=== PATIENT | female | born 1985 | race Caucasian/White ===

== ENCOUNTER 2019-03-10 05:56 | Emergency (ER) | payer MEDICAID ==
[~2019-03-10] VITALS: Ht 157.5 cm; Wt 92.5 kg
[~2019-03-10 05:56] MED LIST: FERR325E14 PO; FOLI1TAB19 PO; FOLIC ACID; PREN-385 PO; [UNRECOGNIZED DRUG - REMARK]
[2019-03-10 06:00] VITALS: BP 125/76
--- NOTE | 2019-03-10 06:00 | NUR ---
TO BED # 12 AMBULATORY
--- NOTE | 2019-03-10 06:24 | NUR ---
33/F PT CC ABD PAIN AT 5AM. LOWER ABD PAIN 5/10. STATES IS 1 MONTH . NO BLEEDING OR SPOTTING NOTED. AOX4. CHINESE SPEAKING. ABLE TO VERBALIZE NEEDS. EVEN UNLABORED BREATHING. NO TENDERNESS NOTED. AFEBRILE. WILL CONTINUE TO MONITOR.
--- NOTE | 2019-03-10 06:36 | NUR ---
PT STATES 3 PARA 2
--- NOTE | 2019-03-10 06:55 | NUR ---
BLOOD DRAW PERFORMED
--- NOTE | 2019-03-10 07:15 | NUR ---
ENDORSED CARE TO INCOMING SHIFT FOR CONTINUITY OF CARE.
--- NOTE | 2019-03-10 07:17 | NUR ---
Report received from maru laureano
[2019-03-10 07:26] LABS: BASOPHILS % (AUTO) 0.3 % (0.0-2.0); EOSINOPHILS # (AUTO) 0.2 K/uL (0-0.4); HEMATOCRIT 35.3 % (36-48); HEMOGLOBIN 11.9 g/dL (12.0-16.0); MEAN CORPUSCULAR HEMOGLOBIN 27 pg (27-31); MEAN CORPUSCULAR HGB CONC 34 g/dL (33-37); MEAN CORPUSCULAR VOLUME 80.2 fL (80-94); MONOCYTES # (AUTO) 0.5 K/uL (0.8-1.0); MONOCYTES % (AUTO) 6.5 % (1.7-9.3); NEUTROPHILS % (AUTO) 65.2 % (42.2-75.2); PLATELET COUNT (AUTO) 251 K/uL (140-450); RED CELL DISTRIBUTION WIDTH 14.6 % (11.6-13.7); WHITE BLOOD COUNT (AUTO) 7.7 K/uL (4.8-10.8)
[2019-03-10 07:44] LABS: BILIRUBIN,URINE NEGATIVE (NEGATIVE); BLOOD, URINE NEGATIVE (NEGATIVE); COLOR,URINE YELLOW (YELLOW); LEUKOCYTE ESTERASE ,URINE NEGATIVE (NEGATIVE); NITRITE, URINE NEGATIVE (NEGATIVE); UGLUCOSE NEGATIVE (NEGATIVE)
[2019-03-10 07:45] LABS: APPEARANCE,URINE CLEAR (CLEAR)
--- NOTE | 2019-03-10 07:52 | NUR ---
dr brownlee at bedside
[2019-03-10 07:53] LABS: ANION GAP 12.1 (8-16); CARBON DIOXIDE 24.5 mmol/L (21-32); CREATININE 0.6 mg/dL (0.6-1.3); POTASSIUM 3.6 mmol/L (3.5-5.1)
--- NOTE | 2019-03-10 07:56 | NUR ---
vss at this time, pt is [id number], laying in bed
[2019-03-10 07:59] LABS: ALBUMIN 3.6 g/dL (3.4-5.0); TOTAL BILIRUBIN 0.3 mg/dL (0.0-1.0)
[2019-03-10 08:35] VITALS: BP 114/69
--- NOTE | 2019-03-10 08:35 | NUR ---
Patient discharged with v/s stable. Written and verbal after care instructions given and explained. Patient verbalized understanding. Ambulatory with steady gait. All questions addressed prior to discharge. Advised to follow up with PMD.
== END 2019-03-10 08:35 | disposition home or self-care (01) ==
LOC: MED 05:56
DX: O26.891 Other specified pregnancy related conditions, first trimester (principal); R10.30 Lower abdominal pain, unspecified; Z79.899 Other long term (current) drug therapy; Z3A.01 Less than 8 weeks gestation of pregnancy
CPT/HCPCS: 36415; 76801; 80053; 81003; 84702; 85025; 99284; Q0092; 81025

== ENCOUNTER 2019-04-02 21:43 | Emergency (ER) | payer MEDICAID ==
[~2019-04-02] VITALS: Ht 157.5 cm; Wt 91.6 kg
[2019-04-02 21:47] VITALS: BP 138/72
--- NOTE | 2019-04-02 21:47 | NUR ---
PT TAKEN TO BED 8
--- NOTE | 2019-04-02 22:03 | NUR ---
Dr. Mar evaluating patient at bedside.
--- NOTE | 2019-04-02 22:04 | NUR ---
PT BIB SELF TO THE ED WITH THE CHIEF C/O NON-RADIATING LEFT CHEST PAIN. PT WAS SEEN BY DOCTOR IN CLINIC ON SATURDAY FOR SORE THROAT. TAKING AZITHROMYCIN AND CLARITIN SINCE THEN. PT IS 7 WEEKS PER PT. LUNGS CLEAR. DENIES SOB OR DIFFICULTY BREATHING. ABDOMEN SOFT, ROUND AND NON-TENDER. ACTIVE BOWEL SOUND. DENIES ANY NAUSEA, VOMITING OR DIARRHEA. STATES PAIN OF 6/10 AT THIS TIME.
[2019-04-02] MEDS ORDERED: ALUMINUM HYD/MAG/SIMETHICONE 30 ML UDC PO ONE (22:15)
[2019-04-02 22:55] LABS: BASOPHILS % (AUTO) 0.3 % (0.0-2.0); EOSINOPHILS # (AUTO) 0.2 K/uL (0-0.4); EOSINOPHILS % (AUTO) 2.1 % (0.0-4.0); HEMATOCRIT 34.8 % (36-48); HEMOGLOBIN 11.6 g/dL (12.0-16.0); LYMPHOCYTES # (AUTO) 2.4 K/uL (2.5-16.5); LYMPHOCYTES % (AUTO) 31.5 % (20.5-51.1); MEAN CORPUSCULAR HEMOGLOBIN 27 pg (27-31); MEAN CORPUSCULAR HGB CONC 33 g/dL (33-37); MEAN CORPUSCULAR VOLUME 81.2 fL (80-94); MONOCYTES # (AUTO) 0.6 K/uL (0.8-1.0); MONOCYTES % (AUTO) 7.6 % (1.7-9.3); NEUTROPHILS # (AUTO) 4.4 K/uL (1.8-7.7); NEUTROPHILS % (AUTO) 58.5 % (42.2-75.2); PLATELET COUNT (AUTO) 245 K/uL (140-450); RED BLOOD CELL COUNT(AUTO) 4.29 MIL/uL (4.20-5.40); RED CELL DISTRIBUTION WIDTH 14.8 % (11.6-13.7); WHITE BLOOD COUNT (AUTO) 7.5 K/uL (4.8-10.8)
[2019-04-02 23:05] LABS: ANION GAP 10.8 (8-16); CARBON DIOXIDE 26.1 mmol/L (21-32); CREATININE 0.5 mg/dL (0.6-1.3); POTASSIUM 3.9 mmol/L (3.5-5.1)
[2019-04-02 23:11] LABS: ALBUMIN 3.4 g/dL (3.4-5.0); TOTAL BILIRUBIN 0.2 mg/dL (0.0-1.0)
--- NOTE | 2019-04-02 23:35 | NUR ---
NO SOB OR DIFFICULTY BREATHING NOTED. NO CHANGE IN LOC. VSS. NO C/O PAIN AT THIS TIME.
--- NOTE | 2019-04-02 23:41 | NUR ---
Patient discharged with v/s stable. Written and verbal after care instructions given and explained. Patient alert, oriented and verbalized understanding of instructions. Ambulatory with steady gait. All questions addressed prior to discharge. ID band removed. Patient advised to follow up with PMD. Rx of MAALOX given. Patient educated on indication of medication including possible reaction and side effects. Opportunity to ask questions provided and answered.
[2019-04-02 23:42] VITALS: BP 109/55
== END 2019-04-02 23:41 | disposition home or self-care (01) ==
LOC: MED 21:43
DX: K21.9 Gastro-esophageal reflux disease without esophagitis (principal); Z79.899 Other long term (current) drug therapy
CPT/HCPCS: 36415; 80053; 81002; 81025; 84484; 85025; 93005; 99283

== ENCOUNTER 2019-05-05 09:05 | Emergency (ER) | payer MEDICAID ==
[~2019-05-05] VITALS: Ht 157.5 cm; Wt 92.5 kg
[2019-05-05 09:12] VITALS: BP 114/64
--- NOTE | 2019-05-05 09:15 | NUR ---
PATIENT AMBULATED TO BED 7 AT THIS TIME.
--- NOTE | 2019-05-05 09:20 | NUR ---
PT IN RESTROOM AT THIS TIME PROVIDING URINE SAMPLE
--- NOTE | 2019-05-05 09:23 | NUR ---
PT BIB SELF C/O ANKLE PAIN X2 DAYS. PT DENIES TRAUMA OR INJURY. PT REPORTS SHARP 6/10 PAIN THAT RADIATES UP LATERAL ANKLE. NO SWELLING, REDNESS, BRUISING, OR DEFORMITY PRESENT. + CMS. VSS. PT 12 WEEKS , LMP 01/15/19, . ER MD TO SEE PT. MEDHX:DENIES RX:DENIES
[2019-05-05] MEDS ORDERED: ACETAMINOPHEN EXTRA STRENGTH 500 MG TAB PO ONE (09:55)
--- NOTE | 2019-05-05 10:00 | NUR ---
LUPE SALDIVAR APPLIED SPLINT TO PT RT FOOT, TOES DISTAL TO SPLINT + CMS.
--- NOTE | 2019-05-05 10:02 | NUR ---
po meds given-nadr at this time
[2019-05-05 10:21] VITALS: BP 118/69
--- NOTE | 2019-05-05 10:21 | NUR ---
DPatient discharged with v/s stable. Written and verbal after care instructions given and explained. Patient alert, oriented and verbalized understanding of instructions. Ambulatory with steady gait. All questions addressed prior to discharge. ID band removed. Patient advised to follow up with PMD. Rx of TYLENOL given. Patient educated on indication of medication including possible reaction and side effects. Opportunity to ask questions provided and answered.
== END 2019-05-05 10:21 | disposition home or self-care (01) ==
LOC: MED 09:05
DX: O9A.212 Injury, poisoning and certain other consequences of external causes complicating pregnancy, second trimester (principal); S93.601A Unspecified sprain of right foot, initial encounter; Z3A.14 14 weeks gestation of pregnancy; Z79.899 Other long term (current) drug therapy; X58.XXXA Exposure to other specified factors, initial encounter; Y93.89 Activity, other specified; Y92.89 Other specified places as the place of occurrence of the external cause; Y99.8 Other external cause status
CPT/HCPCS: 29515; 81002; 81025; 99283

== ENCOUNTER 2019-08-31 05:10 | Observation (INO) | payer MEDICAID ==
[~2019-08-31] VITALS: Ht 157.5 cm; Wt 92.5 kg
[2019-08-31 06:03] VITALS: BP 115/65
[2019-08-31 06:57] LABS: APPEARANCE,URINE CLEAR (CLEAR); BILIRUBIN,URINE NEGATIVE (NEGATIVE); BLOOD, URINE NEGATIVE (NEGATIVE); COLOR,URINE YELLOW (YELLOW); LEUKOCYTE ESTERASE ,URINE NEGATIVE (NEGATIVE); NITRITE, URINE NEGATIVE (NEGATIVE); UGLUCOSE NEGATIVE (NEGATIVE)
--- NOTE | 2019-08-31 13:17 | NUR ---
PATIENT HAS BEEN SCREENED AND CATEGORIZED LOW NUTRITION RISK. PATIENT WILL BE SEEN WITHIN 7 DAYS OF ADMISSION. 09/06/[address]
== END 2019-08-31 16:08 | disposition home or self-care (01) ==
LOC: MLD 05:10
PROVIDERS: ADMIT Obstetrics & Gynecology; ATTEND Obstetrics & Gynecology
DX: O60.03 Preterm labor without delivery, third trimester (principal); O26.893 Other specified pregnancy related conditions, third trimester; R10.9 Unspecified abdominal pain; Z3A.32 32 weeks gestation of pregnancy
CPT/HCPCS: 36415; 76817; 81003; 82731; G0378; Q0092

== ENCOUNTER 2019-09-10 09:50 | Observation (INO) | payer MEDICAID ==
[~2019-09-10] VITALS: Ht 157.5 cm; Wt 92.5 kg
[~2019-09-10 09:50] MED LIST changes: -FOLIC ACID
[2019-09-10 10:12] VITALS: BP 117/72
--- NOTE | 2019-09-10 11:08 | NUR ---
PATIENT HAS BEEN SCREENED AND CATEGORIZED LOW NUTRITION RISK. PATIENT WILL BE SEEN WITHIN 7 DAYS OF ADMISSION. 09/17/[address]
== END 2019-09-10 13:38 | disposition home or self-care (01) ==
LOC: MLD 09:50
PROVIDERS: ADMIT Obstetrics & Gynecology; ATTEND Obstetrics & Gynecology
DX: O60.03 Preterm labor without delivery, third trimester (principal); R10.9 Unspecified abdominal pain; Z3A.34 34 weeks gestation of pregnancy
CPT/HCPCS: 76819; G0378; Q0092; 81000

== ENCOUNTER 2019-10-03 21:13 | Emergency (ER) | payer MEDICAID ==
[~2019-10-03] VITALS: Ht 157.5 cm; Wt 99.3 kg
[2019-10-03 21:17] VITALS: BP 151/92
--- NOTE | 2019-10-03 21:23 | NUR ---
PT AMBULATED TO BED #3
--- NOTE | 2019-10-03 21:41 | NUR ---
PATIENT PRESENTS TO ED WITH CHEST PAIN X2 HOURS. PRESSURE LIKE PAIN THAT RADIATES TO HER BACK. 35 WEEKS , LMP 01/15/19. DENIES ABD PAIN AND CRAMPING. PT DENIES PHM NKA. PT DID NOT TAKE ASPRIN OR NITRO. PT TAKES VITAMIN, FOLIC ACID AND PEPCID. DENIES N/V/D; SKIN IS PINK/WARM/DRY; AAOX4 WITH EVEN AND STEADY GAIT; LUNGS CLEAR BL; HR EVEN AND REGULAR; PT DENIES ANY FEVER, SOB, OR COUGH AT THIS TIME; PATIENT STATES PAIN OF 3/10 AT THIS TIME; VSS; PATIENT POSITIONED FOR COMFORT; HOB ELEVATED; BEDRAILS UP X2; BED DOWN. ER MD MADE AWARE OF PT STATUS.
--- NOTE | 2019-10-03 21:44 | NUR ---
EKG PERFORMED AT BEDSIDE
[2019-10-03] MEDS ORDERED: ACETAMINOPHEN EXTRA STRENGTH 500 MG TAB PO ONE (21:55)
[2019-10-03 22:32] VITALS: BP 137/88
== END 2019-10-03 22:32 | disposition home or self-care (01) ==
LOC: MED 21:13
DX: O26.893 Other specified pregnancy related conditions, third trimester (principal); R07.89 Other chest pain; R05 Cough; Z79.899 Other long term (current) drug therapy
CPT/HCPCS: 81002; 81025; 93005; 99283

== ENCOUNTER 2019-10-12 08:20 | Inpatient (IN) | payer MEDICAID ==
[~2019-10-12] VITALS: Ht 157.5 cm; Wt 92.5 kg
[2019-10-12 10:17] LABS: BASOPHILS % (AUTO) 0.2 % (0.0-2.0); EOSINOPHILS # (AUTO) 0.1 K/uL (0-0.4); EOSINOPHILS % (AUTO) 0.8 % (0.0-4.0); HEMATOCRIT 35.8 % (36-48); LYMPHOCYTES # (AUTO) 1.7 K/uL (2.5-16.5); LYMPHOCYTES % (AUTO) 23.4 % (20.5-51.1); MEAN CORPUSCULAR HEMOGLOBIN 29 pg (27-31); MEAN CORPUSCULAR HGB CONC 34 g/dL (33-37); MEAN CORPUSCULAR VOLUME 87.4 fL (80-94); MONOCYTES # (AUTO) 0.5 K/uL (0.8-1.0); MONOCYTES % (AUTO) 6.7 % (1.7-9.3); NEUTROPHILS % (AUTO) 68.9 % (42.2-75.2); PLATELET COUNT (AUTO) 228 K/uL (140-450); RED BLOOD CELL COUNT(AUTO) 4.09 MIL/uL (4.20-5.40); RED CELL DISTRIBUTION WIDTH 14.1 % (11.6-13.7); WHITE BLOOD COUNT (AUTO) 7.3 K/uL (4.8-10.8)
[2019-10-12] MEDS ORDERED: LACTATED RINGERS 1,000 ML IV SCH (10:50)
[2019-10-12] MEDS ORDERED: INFLUENZA VACCINE QUAD 0.5 ML SYR IMVAC PRN (11:35)
[2019-10-12 11:47] LABS: APPEARANCE,URINE HAZY (CLEAR); BILIRUBIN,URINE NEGATIVE (NEGATIVE); BLOOD, URINE 3+ (NEGATIVE); COLOR,URINE YELLOW (YELLOW); LEUKOCYTE ESTERASE ,URINE TRACE (NEGATIVE); NITRITE, URINE NEGATIVE (NEGATIVE); UGLUCOSE NEGATIVE (NEGATIVE)
[2019-10-12] MEDS ORDERED: PROMETHAZINE 25 MG/ML VIAL IVP PRN (11:55)
[2019-10-12] MEDS ORDERED: CARBOPROST 250 MCG/ML AMP IM PRN (11:55)
[2019-10-12] MEDS ORDERED: METHYLERGONOVINE 0.2 MG/ML AMP IM PRN ×2 (11:55→22:10)
[2019-10-12] MEDS ORDERED: MISOPROSTOL 25 MCG TAB VG SCH (12:00)
[2019-10-12 12:38] LABS: RBC,URINE 80-100 /HPF (0-5)
[2019-10-12 12:41] LABS: WBC,URINE 0-5 /HPF (0-5)
[2019-10-12] MEDS ORDERED: MISOPROSTOL 25 MCG TAB ONE (13:03)
[2019-10-12 13:07] VITALS: BP 157/87
[2019-10-12 13:29] LABS: ALBUMIN 2.6 g/dL (3.4-5.0); ANION GAP 15.2 (8-16); CREATININE 0.6 mg/dL (0.6-1.3); POTASSIUM 4.2 mmol/L (3.5-5.1); TOTAL BILIRUBIN 0.3 mg/dL (0.0-1.0)
[2019-10-12] MEDS ORDERED: fentaNYL 0.05 MG/ML VIAL IVP ONE (16:10)
[2019-10-12] MEDS ORDERED: MAG SULF 2000 MG/WATER PREMIX 50 ML IV ONE (16:10)
[2019-10-12] MEDS ORDERED: fentaNYL 0.05 MG/ML VIAL ONE (16:27)
[2019-10-12] MEDS ORDERED: LABETALOL 100 MG/20 ML VIAL ONE (16:45)
[2019-10-12] MEDS ORDERED: MAG SULF 2000 MG/WATER PREMIX 100 ML IV SCH (17:00)
[2019-10-12] MEDS ORDERED: MAG SULF 20 GM/H2O PREMIX DRIP 500 ML IV ONE (18:11)
[2019-10-12] MEDS: MAG SULF 20 GM/H2O PREMIX DRIP 500 ML IV SCH (18:14)
[2019-10-12] MEDS ORDERED: ROPIVACAINE 0.2%/NS PREMIX 100 ML EPI ONE (18:15)
[2019-10-12] MEDS ORDERED: OXYTOCIN 20 UNITS/LR PREMIX 1,000 ML IV ONE (20:56)
[2019-10-12] MEDS ORDERED: OXYTOCIN 10 UNITS/ML VIAL IM PRN (22:10)
[2019-10-12] MEDS ORDERED: MEASLES, MUMPS, AND RUBELLA 1 VIAL SQVAC PRN (22:10)
[2019-10-13] MEDS: IBUPROFEN 800 MG TAB PO PRN ×2 (04:17→11:33)
[2019-10-13] MEDS ORDERED: MAG SULF 20 GM/H2O PREMIX DRIP 500 ML IV ONE (05:02)
[2019-10-13] MEDS: MAG SULF 20 GM/H2O PREMIX DRIP 500 ML IV SCH (05:05)
--- NOTE | 2019-10-13 08:53 | NUR ---
PATIENT HAS BEEN SCREENED AND CATEGORIZED LOW NUTRITION RISK. PATIENT WILL BE SEEN WITHIN 7 DAYS OF ADMISSION. 10/19/[address]
[2019-10-13 09:39] LABS: HEMATOCRIT 34.6 % (36-48); HEMOGLOBIN 11.7 g/dL (12.0-16.0)
[2019-10-14] MEDS: IBUPROFEN 800 MG TAB PO PRN (05:54)
[2019-10-15] MEDS: IBUPROFEN 800 MG TAB PO PRN (00:18)
== END 2019-10-15 11:25 | disposition home or self-care (01) | DRG 560 ==
LOC: MLD 08:20 → OBSVTOIN 12:06 → MFCC 10-13 20:40
PROVIDERS: ADMIT Obstetrics & Gynecology; ATTEND Obstetrics & Gynecology
PROC: 10E0XZZ Delivery of Products of Conception, External Approach (ICD-10-PCS; principal; 2019-10-12)
PROC: 10907ZC Drainage of Amniotic Fluid, Therapeutic from Products of Conception, Via Natural or Artificial Opening (ICD-10-PCS; 2019-10-12)
PROC: 3E0R3BZ Introduction of Anesthetic Agent into Spinal Canal, Percutaneous Approach (ICD-10-PCS; 2019-10-12)
PROC: 00HU33Z Insertion of Infusion Device into Spinal Canal, Percutaneous Approach (ICD-10-PCS; 2019-10-12)
PROC: 3E0234Z Introduction of Serum, Toxoid and Vaccine into Muscle, Percutaneous Approach (ICD-10-PCS; 2019-10-12)
PROC: 0KQM0ZZ Repair Perineum Muscle, Open Approach (ICD-10-PCS; 2019-10-12)
PROC: 3E033VJ Introduction of Other Hormone into Peripheral Vein, Percutaneous Approach (ICD-10-PCS; 2019-10-12)
DX: O70.1 Second degree perineal laceration during delivery (principal); O63.9 Long labor, unspecified; O14.04 Mild to moderate pre-eclampsia, complicating childbirth; O76 Abnormality in fetal heart rate and rhythm complicating labor and delivery; O99.214 Obesity complicating childbirth; E66.9 Obesity, unspecified; Z23 Encounter for immunization; Z37.0 Single live birth; Z3A.38 38 weeks gestation of pregnancy
CPT/HCPCS: G0378 ×4; 36415; 51702; 59409; 76819; 80053; 81001; 83735; 84550; 85018; 85025; 86592; 86886; 86900; 86901; 90715; J2590; J2795; J3010; J3475; J3490; J7120; Q0092

== ENCOUNTER 2021-12-15 08:36 | Emergency (ER) | payer MEDICAID ==
[~2021-12-15] VITALS: Ht 157.5 cm; Wt 95.3 kg
[2021-12-15 08:41] VITALS: BP 124/71
--- NOTE | 2021-12-15 08:52 | NUR ---
Patient ambulated to bed 09 with steady/even gait.
--- NOTE | 2021-12-15 08:56 | NUR ---
Dr. Cook is evaluating patient at bedside
--- NOTE | 2021-12-15 09:02 | NUR ---
36 y/o F BIB self c/o lower abdominal pain since 1999 last night. Patient A&Ox4, ambulatory, states 7/10, sharp/intermittent, radiating to back. Pt states worsens with sitting, alleviated with laying down. Abd soft/round/tender to palpation. Pt also reports constipation, however states last BM yesterday - normal. Denies dysuria, fever, chest pain, urinary symptoms. Bed locked in lowest position, side rails x 1. Pt placed into a gown. PMH/Sx/Meds: appendectomy NKDA
[2021-12-15] MEDS ORDERED: KETOROLAC 30 MG/ML VIAL IM ONE (09:15)
--- NOTE | 2021-12-15 09:45 | NUR ---
Patient reports + relief to pain; 5/10 at this time. All pt needs met.
[2021-12-15 11:01] VITALS: BP 109/71
--- NOTE | 2021-12-15 11:05 | NUR ---
Patient appears to be resting comfortably in bed. Vital Signs within normal limits. Respirations even and unlabored. Pain 4/10 at this time. All needs met.
--- NOTE | 2021-12-15 11:55 | NUR ---
Dr. Cook is reevaluating pt at bedside
[2021-12-15] MEDS ORDERED: ACET-10509 PO (11:58)
[2021-12-15] MEDS ORDERED: NAPR-54 PO (11:58)
--- NOTE | 2021-12-15 12:02 | NUR ---
Patient discharged with v/s stable. Written and verbal after care instructions given and explained. Patient alert, oriented and verbalized understanding of instructions. Ambulatory with steady gait. All questions addressed prior to discharge. ID band removed. Patient advised to follow up with PMD. Rx of Tylenol, Naprosyn given. Patient educated on indication of medication including possible reaction and side effects. Opportunity to ask questions provided and answered. Work note (Bahamian) provided
== END 2021-12-15 12:02 | disposition home or self-care (01) ==
LOC: MED 08:36
DX: N83.201 Unspecified ovarian cyst, right side (principal)
CPT/HCPCS: 76856; 81002; 81025; 93976; 96372; 99284; J1885; Q0092

== ENCOUNTER 2022-06-10 16:40 | Emergency (ER) | payer MEDICAID ==
[~2022-06-10] VITALS: Ht 162.6 cm; Wt 93.9 kg
[~2022-06-10 16:40] MED LIST changes: +ACET-10509 PO; +NAPR-54 PO
[2022-06-10 16:54] VITALS: BP 118/75
--- NOTE | 2022-06-10 17:06 | NUR ---
PT AMBULATED TO BED 8 WITH STEADY GAIT
--- NOTE | 2022-06-10 17:15 | NUR ---
36 Y/O FEMALE C/O OF SUDDEN ONSET PELVIC PAIN, PER PT SHE WAS WALKING WITH HER FAMILY WHEN SHE SUDDENTLY FELT A "PINCHING" IN THE PELVIC AREA, RADIATING TO THE BACK 40MIN AGO, DENIES ANY VAGINAL BLEEDING/DISCHARGE, DENIES TRAUMA/INJURY. DENIES N/V/D, SOB, AND CHEST PAIN. A&OX4, SKIN INTACT, STEADY GAIT, AND VITALS WNL FOR PT. NKA PMH: DENIES
[2022-06-10] MEDS ORDERED: MORPHINE SULFATE 2 MG/ML SYR IM STA (18:06)
[2022-06-10] MEDS ORDERED: KETOROLAC 30 MG/ML VIAL IM ONE (18:10)
[2022-06-10 18:23] LABS: BASOPHILS % (AUTO) 0.2 % (0.0-2.0); EOSINOPHILS # (AUTO) 0.1 K/uL (0-0.4); EOSINOPHILS % (AUTO) 1.4 % (0.0-4.0); HEMATOCRIT 34.5 % (36-48); HEMOGLOBIN 11.6 g/dL (12.0-16.0); LYMPHOCYTES # (AUTO) 2.4 K/uL (2.5-16.5); LYMPHOCYTES % (AUTO) 28.3 % (20.5-51.1); MEAN CORPUSCULAR HEMOGLOBIN 28 pg (27-31); MEAN CORPUSCULAR HGB CONC 34 g/dL (33-37); MEAN CORPUSCULAR VOLUME 82.7 fL (80-94); MONOCYTES # (AUTO) 0.5 K/uL (0.8-1.0); MONOCYTES % (AUTO) 5.5 % (1.7-9.3); NEUTROPHILS # (AUTO) 5.5 K/uL (1.8-7.7); NEUTROPHILS % (AUTO) 64.6 % (42.2-75.2); PLATELET COUNT (AUTO) 255 K/uL (140-450); RED BLOOD CELL COUNT(AUTO) 4.17 MIL/uL (4.20-5.40); RED CELL DISTRIBUTION WIDTH 13.9 % (11.6-13.7); WHITE BLOOD COUNT (AUTO) 8.5 K/uL (4.8-10.8)
[2022-06-10 18:40] LABS: ALBUMIN 3.5 g/dL (3.4-5.0); ANION GAP 11.8 (8-16); CARBON DIOXIDE 26.1 mmol/L (21-32); CREATININE 0.6 mg/dL (0.6-1.3); POTASSIUM 3.9 mmol/L (3.5-5.1); TOTAL BILIRUBIN 0.2 mg/dL (0.0-1.0)
--- NOTE | 2022-06-10 19:15 | NUR ---
Pt report given to URIEL PONCE. Transfer of care at this time.
[2022-06-10] MEDS ORDERED: IBUP-1842 PO (20:04)
[2022-06-10] MEDS ORDERED: CYCL-711 PO (20:04)
[2022-06-10 20:18] VITALS: BP 123/78
--- NOTE | 2022-06-10 20:18 | NUR ---
Patient discharged with v/s stable. Written and verbal after care instructions given and explained. Patient alert, oriented and verbalized understanding of instructions. Ambulatory with steady gait. All questions addressed prior to discharge. ID band removed. Patient advised to follow up with PMD. Rx of FLEXERIL AND MOTRIN given. Opportunity to ask questions provided and answered.
--- NOTE | 2022-06-10 20:21 | NUR ---
The patient's care was reviewed and supervised by Josefina Awad RN.
== END 2022-06-10 20:18 | disposition home or self-care (01) ==
LOC: MED 16:40
DX: N83.202 Unspecified ovarian cyst, left side (principal)
CPT/HCPCS: 36415; 76856; 80053; 81002; 81025; 85025; 93976; 96372; 99284; J1885; J2270; Q0092

== ENCOUNTER 2023-01-23 09:08 | Emergency (ER) | payer MEDICAID ==
[~2023-01-23] VITALS: Ht 157.5 cm; Wt 96.2 kg
[~2023-01-23 09:08] MED LIST changes: +CYCL-711 PO; +IBUP-1842 PO
[2023-01-23 09:26] VITALS: BP 152/104
--- NOTE | 2023-01-23 09:38 | NUR ---
PT SWABBED FOR COVID, FLU, AND STREP
--- NOTE | 2023-01-23 09:38 | NUR ---
37 Y/O FEMALE, C/O RIGHT SIDED FACIAL PAIN, NO FACIAL DROOP OR WEAKNESS, THROAT PAIN, EYE DISCHARGE SINCE THIS MORNING. STATES OTHER SICK CONTACTS AT HOME WITH SIMILAIR S/S. 04/20 PAIN AT THIS TIME. DENIES N/V/D, COUGH, FEVER, SOB, CP. PMH: DENIES NKA MED: DENIES
[2023-01-23] MEDS ORDERED: GUAI118L81 PO (11:00)
--- NOTE | 2023-01-23 11:12 | NUR ---
Patient discharged with v/s stable. Written and verbal after care instructions given and explained. Patient alert, oriented and verbalized understanding of instructions. Ambulatory with steady gait. All questions addressed prior to discharge. ID band removed. Patient advised to follow up with PMD. Rx of GUAIFENESIN given. Patient educated on indication of medication including possible reaction and side effects. Opportunity to ask questions provided and answered.
[2023-01-23 11:13] VITALS: BP 135/87
== END 2023-01-23 11:12 | disposition home or self-care (01) ==
LOC: MED 09:08
DX: J06.9 Acute upper respiratory infection, unspecified (principal); Z20.822 Contact with and (suspected) exposure to COVID-19; Z79.899 Other long term (current) drug therapy; Z79.1 Long term (current) use of non-steroidal anti-inflammatories (NSAID)
CPT/HCPCS: 87081; 99283

== ENCOUNTER 2023-09-14 12:36 | Emergency (ER) | payer MEDICAID ==
[~2023-09-14] VITALS: Ht 157.5 cm; Wt 93.0 kg
[~2023-09-14 12:36] MED LIST changes: +GUAI118L81 PO
[2023-09-14 12:40] VITALS: BP 124/76; PULSE 72; RESP 16; TEMP 98; O2SAT 98
[2023-09-14] MEDS ORDERED: KETOROLAC 30 MG/ML VIAL IM ONE (13:00)
[2023-09-14] MEDS ORDERED: methocarbamoL 500 MG TAB PO ONE (13:00)
[2023-09-14] MEDS ORDERED: IBUP-2213 PO (14:08)
[2023-09-14] MEDS ORDERED: METH-1681 PO (14:08)
== END 2023-09-14 14:47 | disposition home or self-care (01) ==
LOC: MED 12:36
DX: M25.512 Pain in left shoulder (principal); M54.2 Cervicalgia; Z79.899 Other long term (current) drug therapy
CPT/HCPCS: 81025; 93005; 96372; 99283; J1885

== ENCOUNTER 2024-07-07 08:06 | Emergency (ER) | payer MEDICAID, OTHER ==
[~2024-07-07] VITALS: Ht 157.5 cm; Wt 93.4 kg
[~2024-07-07 08:06] MED LIST changes: -ACET-10509 PO; +ACET500T99 PO; +IBUP-2213 PO; +METH-1681 PO; +NAPR-337 PO; -NAPR-54 PO
[2024-07-07 08:33] VITALS: PULSE 62; RESP 16; TEMP 97.7; O2SAT 100
[2024-07-07] MEDS: KETOROLAC 30 MG/ML VIAL IM ONE (09:37)
[2024-07-07] MEDS ORDERED: NAPR-1704 PO (09:41)
[2024-07-07 09:49] VITALS: BP 120/89; PULSE 62; RESP 16; TEMP 97.7; O2SAT 100
== END 2024-07-07 09:44 | disposition home or self-care (01) ==
LOC: MED 08:06
DX: M79.672 Pain in left foot (principal); Z90.49 Acquired absence of other specified parts of digestive tract; Z79.1 Long term (current) use of non-steroidal anti-inflammatories (NSAID); Z79.899 Other long term (current) drug therapy
CPT/HCPCS: 73630; 81025; 96372; 99283; J1885